=== PATIENT | female | born 1980 | race Caucasian/White ===

== ENCOUNTER 2018-11-15 12:48 | Emergency (ER) | payer MEDICAID ==
[~2018-11-15] VITALS: Ht 160 cm; Wt 79.0 kg
[2018-11-15 13:11] VITALS: Ht 160 cm; Wt 79.0 kg
[2018-11-15 13:55] LABS: BASOPHIL % 1.7 % (0-2); PLATELET COUNT 309 x10^3mcL (130-400)
[2018-11-15 14:38] LABS: UA SPECIFIC GRAVITY 1.025 (1.005-1.035); microscopic required? YES; urine erythrocyte TRACE (NEGATIVE)
[2018-11-15 17:00] VITALS: BP 108/68
== END 2018-11-15 17:00 | disposition home or self-care (01) ==
LOC: ED 12:48
PROVIDERS: Emergency Medicine
DX: O34.11 Maternal care for benign tumor of corpus uteri, first trimester (principal); O34.81 Maternal care for other abnormalities of pelvic organs, first trimester; N83.209 Unspecified ovarian cyst, unspecified side; Z3A.01 Less than 8 weeks gestation of pregnancy; Z91.040 Latex allergy status
CPT/HCPCS: 36415; J7030